=== PATIENT | female | born 1950 | race Caucasian/White ===

== ENCOUNTER 2016-08-18 15:59 | Inpatient (IN) | payer OTHER ==
[~2016-08-18] VITALS: Ht 177.8 cm; Wt 83.9 kg
[2016-08-18 21:50] LABS: BASOPHILS 0.4 % (0.0-2.0); EOSINOPHILS 3.3 % (0-7); HEMATOCRIT 38.5 % (36.0-48.0); HEMOGLOBIN 13.4 g/dL (12-16); IMMATURE GRANULOCYTES 0.2 % (0-5); LYMPHOCYTES 16.3 % (15-50); MCH 32.1 pg (26.0-34.0); MCHC 34.8 g/dL (31.0-37.0); MCV 92.1 fL (80.0-100.0); MEAN PLATELET VOLUME 9.4 fL (7.4-10.4); MONOCYTES 12.2 % (2-11); NEUTROPHILS 67.6 % (40-80); PLATELET COUNT 177 10x3/uL (130-400); RBC 4.18 10x6/uL (4.00-5.40); RDW 12.3 % (11.5-14.5); WBC 9.9 10x3/uL (4.8-10.8)
[2016-08-18 22:03] LABS: ALKALINE PHOSPHATASE 64 U/L (46-116); ALT (SGPT) 51 U/L (10-68); AMYLASE - SERUM 50 U/L (25-115); BILIRUBIN - TOTAL 0.89 mg/dL (0.2-1.3); CALC OSMOLALITY 280 mosm/kg (275-300); CALCIUM 8.6 mg/dL (8.5-10.1); CARBON DIOXIDE 30.6 mmol/L (21.0-32.0); CHLORIDE - SERUM 104 mmol/L (98-107); CREATININE - SERUM 0.8 mg/dL (0.6-1.3); GLUCOSE 93 mg/dL (74-106); LIPASE 199 U/L (73-393); POTASSIUM - SERUM 3.8 mmol/L (3.5-5.1); PROTEIN - SERUM 6.5 g/dL (6.4-8.2); SODIUM 141 mmol/L (136-145); UREA NITROGEN 12 mg/dL (7-18); eGFR NON AFRICAN AMERICAN 76 mL/min (90-120)
[2016-08-18] MEDS ORDERED: OMEGA 3 FISH OI1 CAP PO (22:51)
[2016-08-18] MEDS ORDERED: CHILDREN'S ASPI81 MG PO (22:51)
[2016-08-18] MEDS ORDERED: MULTIPLE VITAMI1 TA1 PO (22:52)
[2016-08-18 23:00] VITALS: BP 100/61
[2016-08-18 23:03] VITALS: BP 132/69; BMI 26.6
[2016-08-19 07:26] LABS: BASOPHILS 0.2 % (0.0-2.0); HEMATOCRIT 39.3 % (36.0-48.0); HEMOGLOBIN 13.5 g/dL (12-16); IMMATURE GRANULOCYTES 0.3 % (0-5); MCH 31.6 pg (26.0-34.0); MCHC 34.4 g/dL (31.0-37.0); MEAN PLATELET VOLUME 9.7 fL (7.4-10.4); MONOCYTES 12.5 % (2-11); PLATELET COUNT 188 10x3/uL (130-400); RBC 4.27 10x6/uL (4.00-5.40); RDW 12.4 % (11.5-14.5)
[2016-08-19 07:49] LABS: ALBUMIN 2.7 g/dL (3.4-5.0); ALKALINE PHOSPHATASE 61 U/L (46-116); ALT (SGPT) 43 U/L (10-68); AMYLASE - SERUM 46 U/L (25-115); BILIRUBIN - TOTAL 0.86 mg/dL (0.2-1.3); CALC OSMOLALITY 281 mosm/kg (275-300); CALCIUM 8.4 mg/dL (8.5-10.1); CARBON DIOXIDE 29.9 mmol/L (21.0-32.0); CHLORIDE - SERUM 106 mmol/L (98-107); CHOL - HDL RATIO 4.9 ratio (2.3-4.1); CHOLESTEROL, TOTAL 162 mg/dL (0-200); CREATININE - SERUM 0.7 mg/dL (0.6-1.3); GLUCOSE 117 mg/dL (74-106); HDL CHOLESTEROL 33 mg/dL (32-96); LDL CHOLESTEROL 108 mg/dL (0-100); LDL-HDL RATIO 3.3 ratio (1.5-3.5); LIPASE 182 U/L (73-393); POTASSIUM - SERUM 3.8 mmol/L (3.5-5.1); SODIUM 141 mmol/L (136-145); TRIGLYCERIDE 105 mg/dL (30-200); UREA NITROGEN 12 mg/dL (7-18); eGFR NON AFRICAN AMERICAN 89 mL/min (90-120)
--- NOTE | 2016-08-19 08:08 | NUR ---
AWAKE AND ALERT. ORIENTED X3. LUNGS ARE CLEAR BILATERALLY, NO C OUGH NOTED. SKIN IS INTACT WITHOUT REDNESS. SCD'S IN PLACE. IV TO LEFT HAND IS PATENT WITHOUT REDNESS AT INSERTION SITE. DENIES PAIN. NO NEEDS NOTED. URINE SPECIMEN IS VERY DARK TEA COLORED BUT CLEAR. SENT TO LAB.
[2016-08-19 08:49] LABS: APPEARANCE CLEAR (CLEAR); BILIRUBIN NEGATIVE (NEGATIVE); COLOR DK YELLOW (YELLOW); GLUCOSE NEGATIVE (NEGATIVE); KETONE NEGATIVE (NEGATIVE); LEUKOCYTE ESTERASE TRACE (NEGATIVE); NITRITE NEGATIVE (NEGATIVE); PROTEIN NEGATIVE (NEGATIVE); SPECIFIC GRAVITY 1.015 (1.005-1.020)
[2016-08-19 08:50] LABS: BACTERIA FEW /hpf (NONE SEEN); EPITHELIAL CELLS NSEEN /hpf (0-5); RED CELLS - URINE NONE SEEN /hpf (0-5); WHITE CELLS - URINE 0-5 /hpf (0-5)
[2016-08-19 08:57] VITALS: BP 111/62
--- NOTE | 2016-08-19 10:07 | HP ---
PATIENT: ROEL MILLAN MEDICAL RECORD: [id number] ACCOUNT: [id number] LOCATION:[id number] : 51 ADMISSION DATE: 08/18/16 HISTORY AND PHYSICAL EXAMINATION HISTORY OF PRESENT ILLNESS: Mr. Millan is a pleasant 65-year-old white male with a 5 to 6-day history of abdominal pain, mostly in the left upper quadrant and right upper quadrant, was seen in the clinic yesterday. White count was okay. Chem-12 was okay, was sent today for a CT, which revealed an acute pancreatitis. He is admitted at this time. He denies any known history of high triglycerides. He does not drink or smoke. CT revealed no obvious gallbladder disease. PAST MEDICAL HISTORY: Unremarkable. PAST SURGICAL HISTORY: Includes a vasectomy and left knee procedure. ALLERGIES: None known. MEDICATIONS: He takes some vitamins and supplements, no prescription meds. FAMILY HISTORY: Noncontributory. SOCIAL HISTORY: The patient seldom drinks. Does not smoke. He has retired from . REVIEW OF SYSTEMS: He may have had some fever in the last few days, a few sweats, left upper quadrant abdominal pain with some nausea at times. No vomiting. He has had some constipation. No chest pain or shortness of breath. No recent change in bladder or bowel habits. PHYSICAL EXAMINATION: GENERAL: In no acute distress. HEENT: Negative. NECK: Supple. HEART: Regular. LUNGS: Clear. ABDOMEN: Soft. There is some mild tenderness in the left upper quadrant. NEUROLOGIC: Without any gross focal deficits. IMPRESSION: Acute pancreatitis. PLAN: Observation, IV fluids, check a.m. lipids, check ultrasound in a.m. NPO for now. See orders for rest of plan. TRANSINT:[id number] Voice Confirmation ID: [id number] DOCUMENT ID: [id number] HISTORY AND PHYSICAL [id number] ROEL MILLAN JOE STRAUSS DO at 1007 CC: [id number] DICTATION DATE: 08/18/161910 CORPORATE AFFAIRS MANAGER: 08/19/16 0009 ADM IN [facility] [address] [place] [address]
--- NOTE | 2016-08-19 10:27 | NUR ---
RESTING QUIETLY. DENIES NEEDS.
[2016-08-19 10:47] VITALS: Ht 177.8 cm; Wt 83.9 kg
[2016-08-19 12:24] VITALS: BP 119/65
--- NOTE | 2016-08-19 12:30 | NUR ---
SITTING UP IN BED EATING LUNCH. NO C/O PAIN OR DISCOMFORT. DENIES NEEDS.
--- NOTE | 2016-08-19 15:05 | NUR ---
DISCHARGED TO HOME AMBULATORY WITH FAMILY. DISCHARGE INSTRUCTIONS GIVEN BOTH VERBALLY AND WRITTEN. ALL QUESTIONS ANSWERED. PATIENT VERBALIZED UNDERSTANDING OF SAME. NO NEW PRESCRIPTIONS NEEDED. IV TO LEFT HAND D/C WITH CATHETER INTACT.
== END 2016-08-19 15:05 | disposition home or self-care (01) | DRG 440 ==
LOC: D.CT 15:59 → D.MS 18:12 → D.SDCHOLD 18:12 → D.MS 19:39
PROVIDERS: ADMIT Family Medicine
DX: K85.90 Acute pancreatitis without necrosis or infection, unspecified (principal)